=== PATIENT | female | born 1990 | race Caucasian/White ===

== ENCOUNTER 2016-11-10 19:49 | Emergency (ER) | payer MEDICAID ==
[2016-11-10 21:24] LABS: APPEARANCE,URINE CLOUDY; BILIRUBIN,URINE NEGATIVE (NEGATIVE); GLUCOSE, URINE NEGATIVE (NEGATIVE); KETONES,URINE NEGATIVE (NEGATIVE); LEUKOCYTE ESTERASE,URINE LARGE (NEGATIVE); NITRITE,URINE POSITIVE (NEGATIVE); PROTEIN,URINE 30 mg/dL (NEGATIVE); URINE SPECIFIC GRAVITY 1.011; UROBILINOGEN,URINE NEGATIVE mg/dL (<2.0)
[2016-11-10] MEDS ORDERED: SULFAMETHOXAZOLE/TRIMETHOPRIM 800-160 MG TABLET PO ONE (22:11)
--- NOTE | 2016-11-10 22:14 | ER Document Report ---
ED General - General Chief Complaint: Urinary Problem Stated Complaint: WEAKNESS Time Seen by Provider: 11/10/16 22:02 Notes: Patient is a pleasant 25-year-old female who presents with complaint of feeling weak, having dysuria, having urinary frequency, having a small amount of back pain. She does have a history of frequent UTIs. This does feel similar. No fevers. No vomiting. No diarrhea. TRAVEL OUTSIDE OF THE [place] IN LAST 30 DAYS: No - Related Data Allergies/Adverse Reactions: Penicillins Allergy (Verified 11/10/16 20:10) Past Medical History - Social History Smoking Status: Never Smoker Chew tobacco use (# tins/day): No Frequency of alcohol use: None Drug Abuse: None Family History: Reviewed & Not Pertinent Patient has suicidal ideation: No Patient has homicidal ideation: No Renal/ Medical History: Denies: Hx Peritoneal Dialysis Surgical Hx: Negative - Immunizations Hx Diphtheria, Pertussis, Tetanus Vaccination: No Review of Systems - Review of Systems Notes: My Normal Review Basic REVIEW OF SYSTEMS: CONSTITUTIONAL : Denies fever, chills, or sweats. Denies recent illness. RESPIRATORY: Denies cough, cold, or chest congestion. Denies shortness of breath, difficulty breathing, or wheezing. GASTROINTESTINAL: Denies abdominal pain. Denies nausea, vomiting, or diarrhea. GENITOURINARY: Dysuria FEMALE GENITOURINARY: Denies vaginal bleeding, abnormal or irregular periods. Has a Mirena MUSCULOSKELETAL: Mild low back pain SKIN: Denies rash or skin lesions. NEUROLOGICAL: Denies altered mental status or loss of consciousness. Denies weakness or paralysis or loss of use of either side. Denies problems with gait or speech. Denies sensory or motor loss. ALL OTHER SYSTEMS REVIEWED AND NEGATIVE. Physical Exam - Vital signs Vitals: Temp Pulse Resp BP Pulse Ox 98.4 F 82 18 132/81 H 98 11/10/16 20:06 11/10/16 20:06 11/10/16 20:06 11/10/16 20:06 11/10/16 20:06 - Notes Notes: General Appearance: Well nourished, alert, cooperative, no acute distress, no obvious discomfort. Vitals: reviewed, See vital signs table. Head: no swelling or tenderness to the head Eyes: PERRL, EOMI, Conjuctiva clear Mouth: No decreasd moisture Lungs: No wheezing, No rales, No rhonci, No accessory muscle use, good air exchange bilaterally. Heart: Normal rate, Regular rythm, No murmur, no rub Abdomen: Normal BS, soft, No rigidity, No abdominal tenderness, No guarding, no rebound, no abdominal masses, no organomegaly Extremities: strength 5/5 in all extremities, good pulses in all extremities, no swelling or tenderness in the extremities, no edema. Skin: warm, dry, appropriate color, no rash Neuro: speech clear, oriented x 3, normal affect, responds appropriately to questions. Course - Vital Signs Vital signs: Temp Pulse Resp BP Pulse Ox 98.6 F 80 16 121/76 95 11/10/16 22:23 11/10/16 22:23 11/10/16 22:23 11/10/16 22:23 11/10/16 22:23 - Laboratory Laboratory results interpreted by me: 11/10/16 20:49 Urine Protein 30 H Urine Blood SMALL H Urine Nitrite POSITIVE H Ur Leukocyte Esterase LARGE H - Transfer of Care Notes: 11/11/16 04:45 Patient's urinalysis does show evidence of a very tract infection which matches her history and symptoms. Patient will be placed on antibiotic. She is encouraged to return to the ER if she has fevers, worsening of her symptoms, or feels unwell. Patient agrees with plan and will be discharged home. Dictation of this chart was performed using voice recognition software; therefore, there may be some unintended grammatical errors. Discharge - Discharge Clinical Impression: UTI (urinary tract infection) Qualifiers: Urinary tract infection type: site unspecified Hematuria presence: without hematuria Qualified Code(s): N39.0 - Urinary tract infection, site not specified Condition: Good Disposition: HOME, SELF-CARE Additional Instructions: URINARY TRACT INFECTION: Your evaluation indicates that you have a urinary tract infection. This is due to germs growing in the bladder. This is a common problem. This infection usually responds quickly to antibiotics. Your antibiotic should be taken exactly as prescribed. Drink plenty of fluids -- three to four quarts a day. Occasionally, a bladder anesthetic will be prescribed to help stop the feeling of urgency until the antibiotic has a chance to clear the infection. This may cause your urine to be dark orange. Certain urine infections require a culture. If the doctor obtained a culture, the results will be back in two days. You should call to see if a change in treatment is needed. A repeat urinalysis after you finish treatment is often recommended. The physician will let you know if further testing is required. Call the doctor if you develop fever, chills, flank pain, inability to urinate, or blood in the urine. ANTIBIOTIC THERAPY: You have been given an antibiotic prescription. It's important that you take all the medication, unless instructed otherwise by your physician. Failure to complete the entire course can result in relapse of your condition. Common side effects of antibiotics include nausea, intestinal cramping, or diarrhea. Women may develop vaginal yeast infections, and babies can get yeast (thrush) in the mouth following the use of antibiotics. Contact your physician if you develop significant side effects from this medication. Allergy to this antibiotic can result in hives, wheezing, faintness, or itching. If symptoms of allergy occur, stop the medication and call the doctor. TRIMETHOPRIM-SULFA: You have been given a prescription for trimethoprim-sulfa (TMS, Septra, Bactrim). This is a combination antibiotic of the sulfa class, often used for urinary tract infections, middle ear infections, bronchitis, shigella intestinal infection, and Pneumocystis pneumonia. TMS is usually well-tolerated. Occasional side effects include nausea and decreased appetite. Septra is not recommended for infants less than two months of age. Do not take this medication if you have experienced severe side effects or allergy to sulfa medicine. You should stop this medicine at once and contact your physician if you develop any rash, joint pain, shortness of breath, bruising, or jaundice ( yellow color in the skin), or if you develop any other new or unusual symptoms. FOLLOW-UP CARE: If you have been referred to a physician for follow-up care, call the physician s office for an appointment as you were instructed or within the next two days. If you experience worsening or a significant change in your symptoms, notify the physician immediately or return to the Emergency Department at any time for re-evaluation. Please return to the ER immediately if you develop fevers, vomiting, or feel that your symptoms are worsening. Prescriptions: Sulfamethoxazole/Trimethoprim [Bactrim Ds Tablet] 1 each PO BID #10 tablet
[2016-11-10 22:29] VITALS: BP 121/76
== END 2016-11-10 22:30 | disposition home or self-care (01) ==
LOC: ER 19:49
DX: N39.0 Urinary tract infection, site not specified (principal); R53.1 Weakness; M54.5 Low back pain; Z88.0 Allergy status to penicillin
CPT/HCPCS: 99284; 81001; J3490

== ENCOUNTER 2016-11-11 13:27 | Emergency (ER) | payer MEDICAID ==
[2016-11-11] MEDS ORDERED: NORMAL SALINE 1000 ML 1,000 ML IV ONE (14:42)
[2016-11-11 15:56] LABS: ABSOLUTE LYMPHOCYTES (AUTO) 1.1 10^3/uL (0.5-4.7); ABSOLUTE MONOCYTES (AUTO) 0.6 10^3/uL (0.1-1.4); ABSOLUTE NEUT (AUTO) 4.2 10^3/uL (1.7-8.2); BASOPHILS % (AUTO) 0.8 % (0-2); EOSINOPHILS % (AUTO) 0.6 % (0-6); HEMATOCRIT 40.9 % (36.0-47.0); HEMOGLOBIN 13.6 g/dL (12.0-15.5); HGB HCT DIFFERENCE -0.1; LYMPHOCYTES % (AUTO) 18.4 % (13-45); MEAN CORPUSCULAR HEMOGLOBIN 27.6 pg (27.0-33.4); MEAN CORPUSCULAR HGB CONC 33.2 g/dL (32.0-36.0); MEAN CORPUSCULAR VOLUME 83 fl (80-97); MONOCYTES % (AUTO) 10.2 % (3-13); RED BLOOD COUNT 4.91 10^6/uL (3.72-5.28); RED CELL DISTRIBUTION WIDTH 13.7 % (11.5-14.0)
[2016-11-11 16:15] LABS: ANION GAP 12 (5-19); BLOOD UREA NITROGEN 9 mg/dL (7-20); CALCIUM 8.6 mg/dL (8.4-10.2); CARBON DIOXIDE 25 mmol/L (22-30); CHLORIDE 107 mmol/L (98-107); CREATINE KINASE 53 U/L (30-135); CREATININE RESULT 0.87 mg/dL (0.52-1.25); GLUCOSE 90 mg/dL (75-110); POTASSIUM 3.9 mmol/L (3.6-5.0); SODIUM 143.6 mmol/L (137-145)
[2016-11-11] MEDS ORDERED: IBUPROFEN 600 MG TABLET PO ONE (16:48)
--- NOTE | 2016-11-11 16:49 | ER Document Report ---
HPI - HPI Pain Level: 4 Context: 25-year-old female nausea, dizziness, headache. Patient was evaluated last evening and diagnosed with a urinary tract infection. She states that she has taken 2 doses of prescribed of her Bactrim and is due for her third dose evening. Patient states that she has generalized muscle aches. States that she is been poor with her fluid intake over the past couple of days as well. - DERM Skin Color: Normal Past Medical History - Social History Smoking Status: Current Every Day Smoker Family History: Reviewed & Not Pertinent Patient has suicidal ideation: No Patient has homicidal ideation: No Renal/ Medical History: Denies: Hx Peritoneal Dialysis - Immunizations Hx Diphtheria, Pertussis, Tetanus Vaccination: No Vertical Provider Document - CONSTITUTIONAL Agree With Documented VS: Yes Exam Limitations: No Limitations General Appearance: WD/WN, No Apparent Distress Notes: PHYSICAL EXAM GENERAL: Alert, interacts well. HEAD: Normocephalic, atraumatic. EYES: Pupils equal, round, and reactive to light. Extraocular movements intact. ENT: Oral mucosa moist, tongue midline. NECK: Full range of motion. Supple. Trachea midline. LUNGS: Clear to auscultation bilaterally, no wheezes, rales, or rhonchi. No respiratory distress. HEART: Regular rate and rhythm. No murmurs, gallops, or rubs. ABDOMEN: Soft, nondistended, nontender. No guarding, rebound, or rigidity.. Bowel sounds present in all 4 quadrants. EXTREMITIES: Moves all 4 extremities spontaneously. No edema, radial and dorsalis pedis pulses 2/4 bilaterally. No cyanosis. NEUROLOGICAL: Alert and oriented x4. Normal speech. PSYCH: Normal affect, normal mood. SKIN: Warm, dry, normal turgor. No rashes or lesions noted. - INFECTION CONTROL TRAVEL OUTSIDE OF THE [place] IN LAST 30 DAYS: No - RESPIRATORY O2 Sat by Pulse Oximetry: 97 Course - Re-evaluation Re-evalutation: 11/11/16 17:12 The 20, no acute distress and afebrile. Since patient has had poor p.o. intake given 1L and basic labs sent to rule out any bacteremia without any evidence of leukocytosis or anemia. The without any electrolyte abnormalities. CK normal. Discussed with patient to encourage clear fluids at home and to take antibiotics as prescribed. - Vital Signs Vital signs: Temp Pulse Resp BP Pulse Ox 99.1 F 100 16 118/75 97 11/11/16 13:32 11/11/16 13:32 11/11/16 13:32 11/11/16 16:37 11/11/16 13:32 - Laboratory Result Diagrams: 11/11/16 15:30 11/11/16 15:30 Discharge - Discharge Clinical Impression: Dehydration Condition: Good Disposition: HOME, SELF-CARE Instructions: Intravenous (IV) Fluids ([facility]) Additional Instructions: Sure to drink plenty of clear fluids Please take your medication as prescribed Please follow-up with your primary care physician as needed You need to take Motrin as needed for your muscle aches. Forms: Return to Work
[2016-11-11 17:01] VITALS: BP 121/72
== END 2016-11-11 17:00 | disposition home or self-care (01) ==
LOC: ER 13:27
DX: E86.0 Dehydration (principal); N39.0 Urinary tract infection, site not specified; R11.0 Nausea; R42 Dizziness and giddiness; R51 Headache; M79.1 Myalgia; F17.200 Nicotine dependence, unspecified, uncomplicated
CPT/HCPCS: 99285; 36415; 82550; 85025; 80048; J3490; J7030

== ENCOUNTER 2017-03-13 14:11 | Emergency (ER) | payer MEDICAID ==
[2017-03-13] MEDS ORDERED: IBUPROFEN 800 MG TABLET PO ONE (15:49)
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
[2017-03-13 16:48] VITALS: BP 113/70
== END 2017-03-13 16:51 | disposition home or self-care (01) ==
LOC: ER 14:11
DX: S09.90XA Unspecified injury of head, initial encounter (principal); S10.93XA Contusion of unspecified part of neck, initial encounter; S20.229A Contusion of unspecified back wall of thorax, initial encounter; M54.2 Cervicalgia; W20.8XXA Other cause of strike by thrown, projected or falling object, initial encounter; E03.9 Hypothyroidism, unspecified; Z88.0 Allergy status to penicillin; Z90.49 Acquired absence of other specified parts of digestive tract
CPT/HCPCS: 99283; 70450; 72125; 72128; L0120; J3490

== ENCOUNTER → 2018-01-14 | Outpatient (CLI) | payer MEDICAID, OTHER ==
--- NOTE | 2018-01-14 16:21 | RADIOLOGY REPORT (SQ) ---
EXAM DESCRIPTION: LUMBAR SPINE COMPLETE COMPLETED DATE/TIME: 01/14/2018 4:10 pm REASON FOR STUDY: LOW BACK PAIN M54.5 LOW BACK PAIN COMPARISON: None. NUMBER OF VIEWS: Five views including obliques. TECHNIQUE: AP, lateral, oblique, and sacral radiographic images acquired of the lumbar spine. LIMITATIONS: None. FINDINGS: MINERALIZATION: Normal. SEGMENTATION: Normal. No transitional anatomy. ALIGNMENT: Normal. VERTEBRAE: Maintained height. No fracture or worrisome bone lesion. DISCS: Preserved height. No significant osteophytes or end plate irregularity. POSTERIOR ELEMENTS: Pedicles and facets are intact. No pars defect or posterior arch defects. HARDWARE: None in the spine. PARASPINAL SOFT TISSUES: Normal. PELVIS: Intact as visualized. No fractures or worrisome bone lesions. SI joints intact. OTHER: No other significant finding. IMPRESSION: NORMAL 5 VIEW LUMBAR SPINE. TECHNICAL DOCUMENTATION: JOB ID: [id number] [employer]- All Rights Reserved Reading location - IP/workstation name: [email or web address]
== END ==
LOC: OD 15:43
PROVIDERS: ATTEND Nurse Practitioner Family
DX: M54.5 Low back pain (principal)
CPT/HCPCS: 72110

== ENCOUNTER 2019-12-28 08:31 | Emergency (ER) | payer SELFPAY ==
[2019-12-28 10:24] LABS: ABSOLUTE LYMPHOCYTES (AUTO) 1.1 10^3/uL (0.5-4.7); ABSOLUTE MONOCYTES (AUTO) 0.4 10^3/uL (0.1-1.4); ABSOLUTE NEUT (AUTO) 3.1 10^3/uL (1.7-8.2); BASOPHILS % (AUTO) 0.3 % (0-2); HEMATOCRIT 41.3 % (36.0-47.0); HEMOGLOBIN 14.1 g/dL (12.0-15.5); LYMPHOCYTES % (AUTO) 23.2 % (13-45); MEAN CORPUSCULAR HGB CONC 34.2 g/dL (32.0-36.0); MEAN CORPUSCULAR VOLUME 85 fl (80-97); MONOCYTES % (AUTO) 8.8 % (3-13); PLATELET COUNT 204 10^3/uL (150-450); RED BLOOD COUNT 4.87 10^6/uL (3.72-5.28); RED CELL DISTRIBUTION WIDTH 13.3 % (11.5-14.0); SEGMENTED NEUTROPHILS % (AUTO) 67.7 % (42-78); TOTAL CELLS COUNTED % (AUTO) 100 %; WHITE BLOOD COUNT 4.6 10^3/uL (4.0-10.5)
[2019-12-28 10:39] LABS: ALBUMIN 4.1 g/dL (3.5-5.0); ALKALINE PHOSPHATASE 41 U/L (38-126); ANION GAP 8 (5-19); ASPARTATE AMINO TRANSFERASE 45 U/L (14-36); BILIRUBIN,TOTAL 0.4 mg/dL (0.2-1.3); BLOOD UREA NITROGEN 14 mg/dL (7-20); CALCIUM 8.7 mg/dL (8.4-10.2); CARBON DIOXIDE 28 mmol/L (22-30); CHLORIDE 104 mmol/L (98-107); GLUCOSE 111 mg/dL (75-110); POTASSIUM 3.6 mmol/L (3.6-5.0); TOTAL PROTEIN 7.4 g/dL (6.3-8.2)
--- NOTE | 2019-12-28 10:42 | RADIOLOGY REPORT (SQ) ---
EXAM DESCRIPTION: CHEST SINGLE VIEW IMAGES COMPLETED DATE/TIME: 12/28/2019 10:23 am REASON FOR STUDY: shortness of breath COMPARISON: None. EXAM PARAMETERS: NUMBER OF VIEWS: One view. TECHNIQUE: Single frontal radiographic view of the chest acquired. RADIATION DOSE: NA LIMITATIONS: None. FINDINGS: LUNGS AND PLEURA: Patchy airspace disease right upper lobe, right retrocardiac region Left lung grossly clear. No pleural effusion. No pneumothorax. MEDIASTINUM AND HILAR STRUCTURES: No masses. Contour normal. HEART AND VASCULAR STRUCTURES: Heart normal in size. Normal vasculature. BONES: No acute findings. HARDWARE: None in the chest. OTHER: No other significant finding. IMPRESSION: Patchy airspace disease right upper lobe, right retrocardiac region TECHNICAL DOCUMENTATION: JOB ID: [id number] 2010 [employer]- All Rights Reserved Reading location - IP/workstation name: [email or web address]
[2019-12-28] MEDS ORDERED: NORMAL SALINE 1000 ML 1,000 ML IV ONE (10:53)
[2019-12-28] MEDS ORDERED: KETOROLAC TROMETHAMINE INJ/PF 30 MG/1 ML SDV IV ONE (10:54)
[2019-12-28] MEDS ORDERED: ONDANSETRON HCL INJ/PF 4 MG/2 ML SDV IV ONE ×2 (10:54→12:27)
--- NOTE | 2019-12-28 10:57 | ER Document Report ---
ED General - General Chief Complaint: Flu Symptoms Stated Complaint: SORE THROAT/VOMITING Time Seen by Provider: 12/28/19 10:08 [facility] MAI MAX FNP-C [Primary Care Provider] - Mode of Arrival: Ambulatory Information source: Patient Notes: 29-year-old woman presents to the emergency department with a complaint of fever, sore throat dry cough and shortness of breath with coughing episodes. She also complains of chest discomfort with cough and also chest discomfort with deep breath. She complains of nausea and vomiting and diarrhea with generalized abdominal pain with bowel movements x3 days. She denies a known exposure to coronavirus, she is a truck assembler. And presents to the emergency department for evaluation and treatment. TRAVEL OUTSIDE OF THE [place] IN LAST 30 DAYS: No - Related Data Allergies/Adverse Reactions: Penicillins Allergy (Verified 12/28/19 10:39) Past Medical History - Social History Smoking Status: Never Smoker Frequency of alcohol use: None Drug Abuse: None Family History: DM, Thyroid Disfunction. denies: Arthritis, CAD, COPD, CVA, Hyperlipidemia, Hypertension, Malignancy Patient has homicidal ideation: No Endocrine Medical History: Reports: Hx Hypothyroidism Renal/ Medical History: Denies: Hx Peritoneal Dialysis Past Surgical History: Reports: Hx Section - x3, Hx Cholecystectomy, Hx Oral Surgery, Hx Tonsillectomy - Immunizations Hx Diphtheria, Pertussis, Tetanus Vaccination: No Review of Systems - Review of Systems Notes: Constitutional: +fever. HENT: Negative for sore throat. Eyes: Negative for visual changes. Cardiovascular: Negative for chest pain. Respiratory: +Negative for shortness of breath. Gastrointestinal: + Nausea + vomiting + diarrhea Genitourinary: Negative for dysuria. Musculoskeletal: Negative for back pain. Skin: Negative for rash. Neurological: Negative for headaches, weakness or numbness. 10 point ROS negative except as marked above and in HPI. Physical Exam - Vital signs Vitals: Temp Pulse Resp BP Pulse Ox 99.8 F 101 H 20 129/67 H 97 12/28/19 09:50 12/28/19 09:50 12/28/19 09:50 12/28/19 09:50 12/28/19 09:50 Course - Re-evaluation Re-evalutation: 12/28/19 13:23 29-year-old woman who has multiple symptoms possible coronavirus infection. CT scan of her chest reveals patchy nodular airspace disease throughout both lungs more confluent consolidation in the right lung, no pleural effusion no emboli visible. She is also having chest pain, shortness of breath cough and nausea vomiting and diarrhea. She is received IV saline, morphine for pain and [place] virus testing is pending at this time. Given the severity of the CT findings as well as BMI of 45 the patient is at increased risk for respiratory complications as well as volume depletion. I discussed the patient with the hospitalist, , states that he will see the patient in the emergency department and will make a decision regarding admission versus outpatient treatment. 12/28/19 13:31 12/28/19 20:05 The patient was dispositioned by the hospitalist . Given that she is not hypoxic and now her tachycardia has improved he is discharging her home to be quarantined at home and given medications. - Vital Signs Vital signs: Temp Pulse Resp BP Pulse Ox 99.4 F 90 16 107/62 94 12/28/19 16:17 12/28/19 16:17 12/28/19 16:17 12/28/19 16:17 12/28/19 16:17 - Laboratory Result Diagrams: 12/28/19 09:50 12/28/19 09:50 Laboratory results interpreted by me: 12/28/19 12/28/19 09:50 12:47 Glucose 111 H AST 45 H ALT 37 H Urine Protein 100 H Urine Ketones 20 H Urine Urobilinogen 2.0 H I have reviewed laboratory data and used this information for the treatment decisions regarding the patient. - Diagnostic Test Radiology reviewed: Image reviewed, Reports reviewed Radiology results interpreted by me: 12/28/19 20:04 X-ray with bilateral patchy infiltrates CTA of the chest: No pulmonary embolus, bilateral diffuse groundglass patchy infiltrates with right lung consolidation. Discharge - Discharge Clinical Impression: Suspected 2019 novel coronavirus infection, Bilateral pulmonary infiltrates on chest x-ray, Nausea vomiting and diarrhea Condition: Stable Disposition: HOME, SELF-CARE Additional Instructions: You were evaluated for your symptoms. Your chest CT reveals that you have b ilateral pneumonia. You have been tested for coronavirus [COVID-19]. Please follow-up with the hospital's medical record department or [facility] in 2 days for the results of your test. In the meantime please ensure that you isolate yourself. Please take the medications have been prescribed including the antibiotic Cefdinir and azithromycin. Please also ensure that you stay hydrated. Take Zofran as needed for nausea vomiting. Should your symptoms continue to worsen, seek medical help. Prescriptions: Ondansetron [Zofran Odt 4 mg Tablet] 1 - 2 tab PO Q4HP PRN #15 tab.rapdis PRN Reason: Guaifenesin/D-Methorphan Hb [Robitussin-Dm Syrup 10 Ml Udcup] 10 ml PO Q6HP PRN #200 ml PRN Reason: Cefdinir 300 mg PO Q12 #14 capsule Ascorbic Acid [Vitamin C] 2,000 mg PO DAILY #20 tablet Cholecalciferol (Vitamin D3) [Vitamin D3 1000 Unit Tablet] 2,000 unit PO DAILY #30 tablet Zinc Sulfate [Zinc-220 Capsule] 220 mg PO DAILY #15 capsule Azithromycin [Zithromax 250 mg Tablet] 250 mg PO DAILY #5 tablet Referrals: [facility] [Outside] MAI MAX FNP-C [Primary Care Provider] -
[2019-12-28] MEDS ORDERED: MORPHINE SULFATE 10 MG/ML INJ IV ONE (12:26)
--- NOTE | 2019-12-28 12:43 | RADIOLOGY REPORT (SQ) ---
EXAM DESCRIPTION: CTA CHEST IMAGES COMPLETED DATE/TIME: 12/28/2019 12:15 pm REASON FOR STUDY: Chest pain, cough, shortness of breath COMPARISON: None. TECHNIQUE: CT scan of the chest performed using helical scanning technique with dynamic intravenous contrast injection. Images reviewed with lung, soft tissue and bone windows. Reconstructed coronal and sagittal MPR images reviewed. Additional 3 dimensional post-processing performed to develop Maximal Intensity Projection images (IL P). All images stored on PACS. All CT scanners at this facility use dose modulation, iterative reconstruction, and/or weight based d osing when appropriate to reduce radiation dose to as low as reasonably achievable (ALARA). [facility]: Dose Right [facility]: CareDose [facility]: Dose Right [facility]: Teradose 4D [facility]: [employer] CONTRAST TYPE AND DOSE: contrast/concentration: Isovue 350.00 mmol/ml; Total Contrast Delivered: 75. 0 ml; Total Saline Delivered: 80.0 ml Contrast bolus optimized for the pulmonary arteries. Not diagnostic for the aorta. RENAL FUNCTION: None required. The patient is less than 50 years old. RADIATION DOSE: CT Rad equipment meets quality standard of care and radiation dose reduction techniq ues were employed. CTDIvol: 19.8 - 39.1 mGy. DLP: 1292 mGy-cm. . LIMITATIONS: None. FINDINGS: LUNGS AND PLEURA: No pneumothorax. Patchy-nodular airspace disease is present throughout both lungs, more confluent consolidation is present in the right lung. No pleural effusions. AORTA AND GREAT VESSELS: No aneurysm. Contrast bolus not optimized for the aorta. HEART: No pericardial effusion. No significant coronary artery calcifications. PULMONARY ARTERIES: No emboli visualized in the main pulmonary arteries or the segmental branches. HILAR AND MEDIASTINAL STRUCTURES: No identified masses or abnormal nodes. HARDWARE: None in the chest. UPPER ABDOMEN: No acute findings. Limited exam. THYROID AND OTHER SOFT TISSUES: No masses. No adenopathy. BONES: No acute finding. 3D MIPS: Confirm above findings. OTHER: No other significant finding. IMPRESSION: Patchy-nodular airspace disease is present throughout both lungs, more confluent consoli dation is present in the right lung. No pleural effusions. No emboli visualized in the main pulmonary arteries or the segmental branches. COMMENT: Quality ID # [id number]: Final reports with documentation of one or more dose reduction techniques (e.g., Automated exposure control, adjustment of the mA and/or kV according to patient size, use of iterative reconstruction technique) TECHNICAL DOCUMENTATION: JOB ID: [id number] [place]-72 2010 [employer]- All Rights Reserved Reading location - IP/workstation name: [email or web address]
[2019-12-28 13:12] LABS: APPEARANCE,URINE CLEAR; BILIRUBIN,URINE NEGATIVE (NEGATIVE); COLOR,URINE YELLOW; GLUCOSE, URINE NEGATIVE (NEGATIVE); KETONES,URINE 20 mg/dL (NEGATIVE); LEUKOCYTE ESTERASE,URINE NEGATIVE (NEGATIVE); NITRITE,URINE NEGATIVE (NEGATIVE); PROTEIN,URINE 100 mg/dL (NEGATIVE)
[2019-12-28 13:13] LABS: URINE SPECIFIC GRAVITY > 1.060
--- NOTE | 2019-12-28 15:08 | PDOC CONSULTATION ---
Consultation Consult Date: 12/28/19 Attending physician:: TEN GARZA Provider Consulted: SKYLAR DELGADO Consult reason:: Bilateral pneumonia. Possible COVID History of Present Illness Admission Date/PCP: BECKI OVIEDO Patient complains of: Cough, short nausea vomiting History of Present Illness: CAROLE HORTA is a 29 year old female with a history of morbid obesity, who presents to the hospital with complaints of persistent cough for the past 2 weeks as well as nausea and several episodes of vomiting over the past 3 days. Her cough has been nonproductive. She has been having recorded temperatures at home ranging as high as 101F. States that she has a thermometer at home which he uses to measure this. Also has some pleuritic pain only upon coughing. Denies any coronavirus exposures. Works as a milk truck driver. States that her nausea feels a lot better right now and that she is not nauseous at the time of my encounter. Denies shortness of breath at this time. Chest x-ray in the ER reveals bilateral pneumonia. Hospitalist service consulted for evaluation for admission. Past Medical History Medical History: None Past Surgical History Past Surgical History: Reports: Section - x3, Cholecystectomy, Tonsillectomy Social History Smoking Status: Never Smoker Electronic Cigarette use?: No Frequency of Alcohol Use: None Hx Recreational Drug Use: No Family History Family History: DM, Thyroid Disfunction. denies: Arthritis, CAD, COPD, CVA, Hyperlipidemia, Hypertension, Malignancy Parental Family History Reviewed: Yes Children Family History Reviewed: Unknown Sibling(s) Family History Reviewed.: Yes Medication/Allergy Home Medications: Ascorbic Acid [Vitamin C] 2,000 mg PO DAILY #20 tablet 12/28/19 Azithromycin [Zithromax 250 mg Tablet] 250 mg PO DAILY #5 tablet 12/28/19 Cefdinir 300 mg PO Q12 #14 capsule 12/28/19 Cholecalciferol (Vitamin D3) [Vitamin D3 1000 Unit Tablet] 2,000 unit PO DAILY #30 tablet 12/28/19 Ondansetron [Zofran Odt 4 mg Tablet] 1 - 2 tab PO Q4HP PRN #15 tab.rapdis 12/28/19 Zinc Sulfate [Zinc-220 Capsule] 220 mg PO DAILY #15 capsule 12/28/19 Allergies/Adverse Reactions: Penicillins Allergy (Verified 12/28/19 10:39) Review of Systems Constitutional: PRESENT: fatigue, fever(s) Eyes: ABSENT: visual disturbances Cardiovascular: PRESENT: other - Denies PND. ABSENT: edema, orthropnea Respiratory: PRESENT: cough. ABSENT: dyspnea, hemoptysis, sputum Gastrointestinal: PRESENT: diarrhea Genitourinary: ABSENT: dysuria Integumentary: PRESENT: diaphoresis - Occasionally at night Neurological: ABSENT: confusion, dizziness Endocrine: ABSENT: polyuria Hematologic/Lymphatic: ABSENT: easy bleeding Physical Exam Vital Signs: Temp Pulse Resp BP Pulse Ox 99.8 F 101 H 20 129/67 H 97 12/28/19 09:54 12/28/19 09:50 12/28/19 09:50 12/28/19 09:50 12/28/19 09:50 Intake & Output 12/27/19 12/28/19 12/29/19 06:59 06:59 06:59 Intake Total 1000 Balance 1000 Weight 127.006 kg General appearance: PRESENT: no acute distress, cooperative, morbidly obese Head exam: PRESENT: normocephalic Eye exam: PRESENT: EOMI Neck exam: ABSENT: JVD Respiratory exam: PRESENT: clear to auscultation panda, symmetrical, unlabored. ABSENT: accessory muscle use, decreased breath sounds, prolonged expiratory pha s, retraction, stridor, tachypnea, wheezes Cardiovascular exam: PRESENT: RRR, +S1, +S2. ABSENT: tachycardia GI/Abdominal exam: PRESENT: soft. ABSENT: distended, firm, guarding, rebound, rigid, tenderness Extremities exam: ABSENT: calf tenderness, pedal edema Neurological exam: PRESENT: alert, awake, oriented to person, oriented to place, oriented to time, oriented to situation Psychiatric exam: ABSENT: agitated, anxious Focused psych exam: ABSENT: pressured speech Skin exam: PRESENT: intact. ABSENT: dry, jaundice Results Laboratory Results: 12/28/19 09:50 12/28/19 09:50 12/28/19 12/28/19 12/28/19 09:50 09:50 12:47 WBC 4.6 RBC 4.87 Hgb 14.1 Hct 41.3 MCV 85 MCH 29.0 MCHC 34.2 RDW 13.3 Plt Count 204 Seg Neutrophils % 67.7 Sodium 140.2 Potassium 3.6 Chloride 104 Carbon Dioxide 28 Anion Gap 8 BUN 14 Creatinine 1.07 Est GFR ( Amer) > 60 Glucose 111 H Calcium 8.7 Total Bilirubin 0.4 AST 45 H Alkaline Phosphatase 41 Total Protein 7.4 Albumin 4.1 Lipase 62.5 Urine Color YELLOW Urine Appearance CLEAR Urine pH 6.0 Ur Specific [place] > 1.060 Urine Protein 100 H Urine Glucose (UA) NEGATIVE Urine Ketones 20 H Urine Blood NEGATIVE Urine Nitrite NEGATIVE Ur Leukocyte Esterase NEGATIVE Urine WBC (Auto) 2 Urine RBC (Auto) 3 Impressions: Chest X-Ray 12/28/19 00:00 IMPRESSION: Patchy airspace disease right upper lobe, right retrocardiac region Chest/Abdomen CTA 12/28/19 10:56 IMPRESSION: Patchy-nodular airspace disease is present throughout both lungs, more confluent consolidation is present in the right lung. No pleural effusions. No emboli visualized in the main pulmonary arteries or the segmental branches. Assessment and Plan - Diagnosis (1) Multifocal pneumonia Is this a current diagnosis for this admission?: Yes (2) Suspected 2019 novel coronavirus infection Is this a current diagnosis for this admission?: Yes (3) Pleuritic pain Is this a current diagnosis for this admission?: Yes (4) Nausea vomiting and diarrhea Is this a current diagnosis for this admission?: Yes - Plan Summary Summary: Patient's constellation of symptoms, chest imaging and liver enzymes are certainly consistent with a potential COVID-[address] of the chest reveals no evidence of pulmonary embolism but does show bilateral multifocal infiltrates which given patient's fever is consistent with pneumonia. Could be viral or bacterial but certainly does fit the appearance of COVID-19. Patient has appropriately been tested for COVID-19 and instructed to follow-up with the results. Have evaluated patient and patient seems to not be in any form of respiratory distress at the moment. Vital signs are completely stable. Tachycardia has im proved following administration of IV fluids. Nausea seems to have improved after receiving antiemetics. I recommend discharging patient home on self-isolation and have instructed patient to follow-up with our records department or [facility] department for the results. I have prescribed vitamins and zinc supplements as well as Cefdinir, azithromycin, Robitussin and Zofran for treatment of patient. - Time Time Spent with patient: 35 or more minutes
[2019-12-28 16:22] VITALS: BP 107/62
== END 2019-12-28 16:23 | disposition home or self-care (01) ==
LOC: ER 08:31
DX: U07.1 COVID-19 (principal); J18.9 Pneumonia, unspecified organism; R11.2 Nausea with vomiting, unspecified; R19.7 Diarrhea, unspecified; R10.84 Generalized abdominal pain; R07.81 Pleurodynia; Z88.0 Allergy status to penicillin; Z90.49 Acquired absence of other specified parts of digestive tract
CPT/HCPCS: 96376; 99285; 96361; 96374; 96375; 36415; 87070; 87880; 84702; 83690; 85025; 87635; 80053; 81001; 71045; 71275; J1885; J2270; J2405; J7030; C9803